=== PATIENT | female | born 1995 | race Caucasian/White ===

== ENCOUNTER 2017-03-23 05:20 | Emergency (ER) | payer MEDICAID ==
[~2017-03-23] VITALS: Ht 170.2 cm; Wt 63.5 kg
[2017-03-23] MEDS ORDERED: KEPPRA1000 MG PO (05:38)
[2017-03-23] MEDS ORDERED: SYNTHROID50 MCG PO (05:38)
== END 2017-03-23 05:55 | disposition short-term general hospital (02) ==
LOC: ER 05:20
DX: N39.0 Urinary tract infection, site not specified (principal); Z79.899 Other long term (current) drug therapy